=== PATIENT | female | born 1950 | race Caucasian/White ===

== ENCOUNTER 2020-04-20 01:15 | Outpatient (CLI) | payer MEDICARE, OTHER, SELFPAY ==
[2020-04-20 19:19] LABS: SARS-CoV-2 RNA PCR Negative
== END 2020-04-20 01:16 | disposition home or self-care (01) ==
LOC: ANHCOVIDDT 01:15
PROVIDERS: PCP Internal Medicine; Visit Provider Internal Medicine Gastroenterology
DX: Z01.812 Encounter for preprocedural laboratory examination (principal); Z11.59 Encounter for screening for other viral diseases
CPT/HCPCS: 87635; C9803; U0003

== ENCOUNTER 2020-04-22 01:29 | Day surgery (SDC) | payer MEDICARE, OTHER, SELFPAY ==
[2020-04-12 13:33] VITALS: BMI 31.4
--- NOTE | 2020-04-22 07:51 | WPDANESEPPF ---
Anes - Initial Pre Proc Eval Procedure: Operation Date: 04/22/20 09:30 Proposed Procedures p Screening Colonoscopy - Henry Jay MD Date/Time: 04/22/20 07:51 Surgeon: Henry Jay MD Pre Op Diagnosis: family hx colon CA Patient Data Age: 69 Gender: F Height: 1.63 m Weight: 83 kg Allergies Allergy/AdvReac Type Severity Reaction Status Date / Time No Known Allergies Allergy Mild Verified 04/22/20 08:44 Home Medications Medication Instructions Recorded Confirmed Type atorvastatin 40 mg PO DAILY 09/10/19 04/12/20 History calcitonin (salmon) 1 spray INTRANASAL DAILY 09/10/19 04/12/20 History insulin lispro [Humalog U-100 See Rx Instructions .ROUTE .COMPLEX 09/10/19 04/12/20 History Insulin] irbesartan 150 mg PO DAILY 09/10/19 04/12/20 History levothyroxine 137 mcg PO DAILY 09/10/19 04/22/20 History pantoprazole 40 mg PO DAILY 09/10/19 04/12/20 History estradiol [Imvexxy Maintenance 10 mcg VAGINAL 2XW 04/12/20 04/12/20 History Pack] Patient hx anesthesia problems: none Family hx anesthesia problems: none PMFSH Past Medical History Medical History Anxiety Arthritis Depression Diabetes Gastroesophageal reflux disease HTN (hypertension) Hypercholesterolemia Hypothyroidism Obesity Family History Family History (Updated 05/20/14 @ 07:13 by DOCTOR UNKNOWN) Mother Family history of dementia Social History Social History Smoking status: Never smoker Alcohol intake: current Anes - Eval Final PreProcedure Day of Procedure 04/22/20 07:51 Patient weight: obese Heart: regular rate and rhythm Lungs: clear to auscultation and normal air movement Airway: Mallampati scale class II Neurological: alert and oriented Last oral intake: >/= 8 hours ASA classification: III Emergent: no Anesthetic plan: proceed Anesthesia type and monitoring: general GIVS Informed Consent: The patient's anesthetic plan and its attendant risks and benefits were discussed with the patient/family/POA. Questions were solicited and answers provided to the satisfaction of the patient/family/POA.
[2020-04-22 08:46] VITALS: BP 137/65; PULSE 79; RESP 20; TEMP 36.7; O2SAT 98
--- NOTE | 2020-04-22 08:47 | P.HP_ITS ---
History of Present Illness History of Present Illness Consent: Risks, benefits, and alternatives have been discussed and questions answered. Patient agrees to proceed with procedure. Chief complaint: family hx colon CA Narrative: Vandana Dickey is a 69 year old female with a history of polyps and a strong family history of colon cancer. [facility] Past Medical History Medical History Anxiety Arthritis Depression Diabetes Gastroesophageal reflux disease HTN (hypertension) Hypercholesterolemia Hypothyroidism Obesity Family History Family History (Updated 05/20/14 @ 07:13 by DOCTOR UNKNOWN) Mother Family history of dementia Social History Social History Smoking status: Never smoker Alcohol intake: current Meds Home Medications and Allergies Home Medications Medication Instructions Recorded Confirmed Type atorvastatin 40 mg PO DAILY 09/10/19 04/12/20 History calcitonin (salmon) 1 spray INTRANASAL DAILY 09/10/19 04/12/20 History insulin lispro [Humalog U-100 See Rx Instructions .ROUTE .COMPLEX 09/10/19 04/12/20 History Insulin] irbesartan 150 mg PO DAILY 09/10/19 04/12/20 History levothyroxine 137 mcg PO DAILY 09/10/19 04/22/20 History pantoprazole 40 mg PO DAILY 09/10/19 04/12/20 History estradiol [Imvexxy Maintenance 10 mcg VAGINAL 2XW 04/12/20 04/12/20 History Pack] Allergies Allergy/AdvReac Type Severity Reaction Status Date / Time No Known Allergies Allergy Mild Verified 04/22/20 08:44 Exam Resp: Auscultation: clear to auscultation bilaterally Cardio: Rate: regular rate Rhythm: regular rhythm GI: GI Palp: Yes Soft to palpation and No Tenderness to palpation present (GI) Assessment and Plan Assessment and plan (1) Personal history of colonic polyps: Code(s): Z86.010 - Personal history of colonic polyps Status: Acute Assessment and Plan: Colonoscopy with possible biopsy or polypectomy or cautery or injection of substances.
--- NOTE | 2020-04-22 08:49 | SUR.PREOP ---
NOTIFIED DR FREY PT HAS CONTINUOUS GLUCOSE MONITOR, READING 143, PT HAS INSULIN PUMP. NO ORDER RECEIVED TO CHECK PT WITH ACCU CHECK MONITOR. PT ASSYMPTOMATIC.
[2020-04-22] MEDS: LACTATED RINGERS 1,000 ML 150 ML IV CONT (08:55)
[2020-04-22 09:41] VITALS: BP 112/69; PULSE 91; RESP 16; O2SAT 93
[2020-04-22 09:51] VITALS: BP 135/72; PULSE 91; RESP 18; O2SAT 96
[2020-04-22 10:01] VITALS: BP 117/56; PULSE 88; RESP 16; O2SAT 98
--- NOTE | 2020-04-22 10:04 | SUR.PHASEII ---
PT BLOOD SUGAR PER HER CONTINUOUS BLOOD SUGAR [id number].
== END 2020-04-22 10:24 | disposition home or self-care (01) ==
PROVIDERS: PCP Internal Medicine; Visit Provider Internal Medicine Gastroenterology
PROC: 0DJD8ZZ Inspection of Lower Intestinal Tract, Via Natural or Artificial Opening Endoscopic (ICD-10-PCS; CPT 45378; principal; 2020-04-22 09:30)
DX: Z12.11 Encounter for screening for malignant neoplasm of colon (principal); Z86.010 Personal history of colon polyps; Z80.0 Family history of malignant neoplasm of digestive organs; I10 Essential (primary) hypertension; E78.00 Pure hypercholesterolemia, unspecified; E11.9 Type 2 diabetes mellitus without complications; E03.9 Hypothyroidism, unspecified; K21.9 Gastro-esophageal reflux disease without esophagitis; F41.8 Other specified anxiety disorders; E66.9 Obesity, unspecified; Z68.31 Body mass index [BMI] 31.0-31.9, adult; Z79.4 Long term (current) use of insulin
CPT/HCPCS: G0105; J2704; J7120

== ENCOUNTER 2021-04-14 14:35 | Outpatient (CLI) | payer MEDICARE, OTHER, SELFPAY ==
--- NOTE | ~2021-04-14 | MM_ITS ---
EXAMINATION: MM screening blair BI w jessa HISTORY: Screening TECHNIQUE: Craniocaudal and mediolateral oblique 3-D tomosynthesis images were obtained and synthetic 2-D images were generated. CAD analysis was submitted and interpreted. COMPARISON: Comparison to multiple prior studies sequentially, with oldest reviewed study dated 01/11. BREAST PARENCHYMAL COMPOSITION: There are scattered areas of fibroglandular density. FINDINGS: There is no evidence of suspicious mass, calcification, or architectural distortion to sugg est malignancy in either breast. There has been no suspicious interval change. IMPRESSION: 1. No mammographic evidence of malignancy. 2. Recommend routine screening mammography in one year. BI-RADS Category 1: Negative Reviewed, dictated and finalized at location A.
== END 2021-04-14 14:36 | disposition home or self-care (01) ==
LOC: ANHIMG 14:43
PROVIDERS: PCP Internal Medicine
DX: Z12.31 Encounter for screening mammogram for malignant neoplasm of breast (principal)
CPT/HCPCS: 77063; 77067

== ENCOUNTER 2022-12-30 00:34 | Emergency (ER) | payer MEDICARE, SELFPAY ==
[2022-12-30] VITALS (13 sets, daily range): BP systolic 142–164; BP diastolic 64–79; PULSE 89–102; RESP 11–18; TEMP 37.2; O2SAT 90–100
--- NOTE | 2022-12-30 01:23 | ED.GENADULT ---
HPI - General Adult General Chief complaint: Nausea/Vomiting/Diarrhea Stated complaint: n/v Time Seen by Provider: 12/30/22 00:52 History of Present Illness HPI narrative: This is a 72-year-old female history of diabetes presenting ED with chief complaint of nausea and vomiting. Patient has been feeling unwell for most of the day. This has primarily been fatigued over she has been taking multiple naps. She had an episode of hypoglycemia around noon that required multiple sugar pills to correct. At 5:00 p.m. she woke up and was nauseous and multiple episodes of nausea and vomiting. There is some abdominal discomfort that occurred after the vomiting. She denies fever, chills, cough, chest pain difficulty breathing or urinary symptoms. Patient spent yesterday in the hospital with their daughter who has colorectal cancer. Related Data Home Medications Medication Instructions Recorded Confirmed atorvastatin 40 mg tablet 40 mg PO DAILY 09/10/19 12/30/22 insulin lispro 100 unit/mL See Rx Instructions .Route .COMPLEX 09/10/19 12/30/22 subcutaneous solution (Humalog U-100 Insulin) levothyroxine 137 mcg tablet 137 mcg PO DAILY 09/10/19 12/30/22 pantoprazole 40 mg tablet,delayed 40 mg PO DAILY 09/10/19 12/30/22 release irbesartan 300 mg tablet 300 mg PO DAILY 09/05/21 12/30/22 Allergies Allergy/AdvReac Type Severity Reaction Status Date / Time No Known Allergies Allergy Mild Verified 12/30/22 00:35 [facility] Past Medical History Medical History Anxiety Arthritis Depression Diabetes Gastroesophageal reflux disease HTN (hypertension) Hypercholesterolemia Hypothyroidism Obesity Family History Family History Mother Family history of dementia Social History Social History Smoking status: Never smoker Alcohol intake: current Lack of Transportation: No Lack of Food: Never True Current Housing: I Have Housing Concerned About Future Housing: No Difficulty Paying Gas/Electric Bills: No Difficulty Paying for Meds: No Currently Unemployed: No Education: Associate Degree Difficulty w/ Childcare or Family Care: No Exam Narrative: APPEARANCE: No apparent distress. Patient is well-appearing Head: atraumatic. EYES: EOMI, NOSE: Atraumatic NECK: Trachea midline RESPIRATORY: No increased rate of breathing, clear to auscultation CARDIOVASCULAR: RRR, no peripheral edema ABDOMINAL: Non-distended, soft nontender no guarding rebound MUSCULOSKELETAl: No obvious deformities NEURO: Alert. Moving 4/4 extremities SKIN:: Warm, dry. Normal color PSYCHIATRIC: Normal affect Course Vital Signs Vital signs: Vital Signs Temperature 99 F 12/30/22 00:42 Pulse Rate 100 12/30/22 00:42 Respiratory Rate 18 12/30/22 00:42 Blood Pressure 164/67 H 12/30/22 00:42 Pulse Oximetry 96 12/30/22 00:42 Temperature 99 F 12/30/22 00:42 Pulse Rate 90 12/30/22 02:16 Respiratory Rate 11 L 12/30/22 02:16 Blood Pressure 142/66 H 12/30/22 02:16 Pulse Oximetry 90 12/30/22 02:16 Medical Decision Making [facility] Narrative Medical decision making narrative: -Presentation: 72-year-old female presenting with nausea and vomiting x1 day. -DDX includes but is not limited to: Viral syndrome, gastroenteritis, DKA/HHS -Co-morbidities complicating care: Type 1 diabetes, anxiety, hypothyroid, hypertension -Social determinants of health: Patient is a retired hospital secretary. She lives with Bladimir who is her . -External Chart Review: None -Hx from independent Sources: Bladimir at bedside -Discussion of Management/Consultants: None -Independent interpretation of studies: CBC within normal limits. Metabolic panel showed hyponatremia and hypochloremia indication of dehydration. Patient given 2 L. Urinalysis was not indicative o
[2022-12-30 01:53] LABS: Basophils Percent Auto 0.1 % (0.2-1.2); Hematocrit 35.6 % (37.0-47.0); Immature Granulocyte Absolute 0.01 K/mm3 (0.00-0.031); Immature Granulocyte Percent A 0.1 % (0-0.5); Lymphocytes Absolute Auto 0.33 K/mm3 (0.9-3.2); Lymphocytes Percent Auto 4.4 % (18.3-44.2); Mean Corpuscular HGB Conc 33.7 g/dl (32-36); Mean Corpuscular Hemoglobin 27.9 pg (26-34); Mean Corpuscular Volume 82.8 fl (80-100); Mean Platelet Volume 9.3 fl (7.4-10.4); Monocytes Absolute Auto 0.3 K/mm3 (0.1-0.6); Monocytes Percent Auto 3.3 % (2.6-8.5); Neutrophils Percent Auto 92.1 % (45.5-73.1); Platelet Count Result 316 k/mm3 (150-375); White Blood Count 7.6 K/mm3 (4.5-10.0)
[2022-12-30 01:57] LABS: Appearance Urine Cloudy (Clear); Bacteria Urine 1+ /hpf; Bilirubin Urine Negative (Negative); Blood Urine Negative (Negative); Color Urine Yellow (Yellow); Glucose Urine UA Trace mg/dL (Negative); Ketones Urine 1+ mg/dL (Negative); Leukocyte Esterase Ur Negative LEU/UL (Negative); Nitrate Urine Negative (Negative); Non Pathogenic Casts 0-2; Protein Urine Trace mg/dL (Negative); Specific Grav Ur 1.025 (1.001-1.035); Squamous Epithelial Cell Urine Few /hpf (Few); Urobilinogen Urine 0.2 mg/dL (<2.0); WBC Urine 0-5 /hpf; pH Urine 5.5 (5.0-9.0)
[2022-12-30] MEDS: FAMOTIDINE 20 MG/2 ML VIAL IV PUSH (02:05)
[2022-12-30] MEDS: ONDANSETRON INJ 4 MG/2 ML VIAL IV PUSH (02:05)
[2022-12-30] MEDS: SODIUM CHLORIDE 0.9% IV 2,000 ML 999 ML IV CONT (02:06)
[2022-12-30 02:10] LABS: Alanine Aminotransferase 34 U/L (6-35); Albumin Level 4.8 g/dL (3.5-5.1); Alkaline Phosphatase 94 U/L (38-126); Anion Gap 7 mmol/L (8-16); Aspartate Amino Transferase 41 U/L (14-36); Bilirubin,Total 0.6 mg/dL (0.2-1.3); Blood Urea Nitrogen 18 mg/dL (7-17); Calcium 8.7 mg/dL (8.4-10.2); Carbon Dioxide 26 mmol/L (22-30); Chloride 95 mmol/L (98-107); Estimated CRCL calculation 93 ml/min; Estimated Glomerular Filt Rate > 60; Glucose 209 mg/dL (65-110); Lipase 11 U/L (23-300); Potassium 4.4 mmol/L (3.4-5.0); Sodium 128 mmol/L (137-145)
[2022-12-30 02:13] LABS: Add Urine Microscopic? YES
[2022-12-30] MEDS: PROCHLORPERAZINE EDISYLATE 10 MG/2 ML VIAL IV PUSH (02:26)
[2022-12-30 02:30] LABS: Influenza A QL RT-PCR Negative (Negative); Influenza B QL RT-PCR Negative (Negative); RSV RNA, RT-PCR Negative (Negative); SARS-CoV-2 RNA PCR Negative
--- NOTE | 2022-12-30 03:28 | PC.NURSE ---
Pt tolerated drinking water w/ no nausea or vomiting. Physician notified.
== END 2022-12-30 03:55 | disposition home or self-care (01) ==
PROVIDERS: Emergency Provider Emergency Medicine
DX: R11.2 Nausea with vomiting, unspecified (principal); E11.9 Type 2 diabetes mellitus without complications; I10 Essential (primary) hypertension; E78.00 Pure hypercholesterolemia, unspecified; E03.9 Hypothyroidism, unspecified; K21.9 Gastro-esophageal reflux disease without esophagitis; F41.9 Anxiety disorder, unspecified; F32.A Depression, unspecified; E66.9 Obesity, unspecified; Z68.32 Body mass index [BMI] 32.0-32.9, adult; Z79.4 Long term (current) use of insulin; Z20.822 Contact with and (suspected) exposure to COVID-19
CPT/HCPCS: 36415; 80053; 81001; 83690; 83735; 85025; 87637; 96374; 96375; 99284; J0780; J2405; J7030

== ENCOUNTER 2025-04-06 00:21 | Day surgery (SDC) | payer MEDICARE, SELFPAY ==
[2025-03-22 14:07] VITALS: BMI 32.0
--- NOTE | 2025-03-22 14:22 | PC.NURSE ---
Pt states she will need ultrasound for her IV. Lidia Luong has been notified.
--- OUTSIDE RECORDS SUMMARY | 2025-04-06 00:23 | XMS_ITS | Clinical Summary ---
Author Organization [place] [id number] [facility] Address [address] [place] [address] Care Team Providers Care General Labor Name Role Phone Jesús Rolle MD Primary Care Provider Allergies No known active allergies Medications lancets (Accu-Chek Fastclix Lancet Drum) misc Use to check blood sugar 4 times per day. 400 each 3 2 Active Imvexxy Maintenance Pack 10 mcg insert vaginal insert INSERT 1APPLICATORFUL IN THE VAGINA TWICE A WEEK 4 Active HumaLOG 100 unit/mL vial for injectionIndicati ons:Type 1 diabetes mellitus without complication (HCC) For use in insulin pump. 75 Units daily. E10.65. 80 mL 2 4 08/10/20 25 Active ALPRAZolam (XANAX) 0.25 mg tablet Take 1 tablet (0.25 mg total) by mouth daily as needed for anxiety 30 tablet [address] (PROTONIX) 40 mg EC tablet TAKE 1 TABLET(40 MG) BY MOUTH DAILY 90 tablet 3 5 Active levothyroxine (SYNTHROID) 137 mcg tablet TAKE 1 TABLET BY MOUTH EVERY MORNING BEFORE BREAKFAST 90 tablet 3 5 Active Accu-Chek Guide test strips strip USE TO TEST BLOOD SUGAR FOUR TIMES DAILY 400 strip 2 5 Active propranolol LA (INDERAL LA) 60 mg 24 hr capsule Take 1 capsule (60 mg total) by mouth daily 90 capsule 2 5 Active semaglutide (WEGOVY) 1 mg/0.5 mL auto-injector Inject 1 mg under the skin every 7 days Active irbesartan (AVAPRO) 300 mg tablet Take 1 tablet (300 mg total) by mouth daily 90 tablet 3 5 Active rosuvastatin (CRESTOR) 40 mg tablet TAKE 1 TABLET BY MOUTH EVERY DAY 90 tablet 2 5 Active Active Problems Patient Care Coordination No te Formatting of this note migh t be different from the original. Ear cleaning Problem Noted Date Diagnosed Date Obesity (BMI 30-39.9) 09/21/2024 Assessment & Plan (09/21/2024 10:43 AM SHOP ESTIMATOR): Will start Wegovy 0.25 mg weekly. Can increase dose ever 4 weeks as tolerated. We discussed possible side effects including hypoglycemia and GI side effects. Closed nondisplaced fracture of second metatarsal bone of right foot 06/19/2022 Assessment & Plan (06/19/2022 11:56 AM CDT): Check XR for healing and likely remove boot. Osteopenia 06/19/2022 Assessment & Plan (06/19/2022 11:57 AM CDT): Bone density at spine, L femoral neck, L total hip c/w osteopenia. Recommended calcium supplement, vitamin D supplement, and weight-bearing exercise. Mixed hyperlipidemia 03/13/2022 Assessment & Plan (09/21/2024 10:39 AM SHOP ESTIMATOR): At goal on current therapy. Assessment & Plan (03/20/2024 11:25 AM CDT): At goal on current therapy. Assessment & Plan (12/17/2023 10:59 AM CDT): At goal on current therapy. Assessment & Plan (09/18/2023 11:10 AM SHOP ESTIMATOR): Last LDL was mildly elevated last time. Repeat lipids today. Assessment & Plan (03/19/2023 10:54 AM CDT): At goal on current therapy. Assessment & Plan (09/18/2022 1:09 PM SHOP ESTIMATOR): Switch atorvastatin to rosuvastatin 20 mg daily to see if this improves her muscle cramps. Assessment & Plan (06/19/2022 11:55 AM CDT): At goal on current therapy. Assessment & Plan (03/13/2022 12:08 PM CDT): At goal on current therapy. Hypertension, essential 06/07/2021 Assessment & Plan (09/21/2024 10:38 AM SHOP ESTIMATOR): At goal on current therapy. Assessment & Plan (03/20/2024 11:25 AM CDT): At goal on current therapy. Assessment & Plan (12/17/2023 10:59 AM CDT): At goal on current therapy. Assessment & Plan (09/18/2023 1:02 PM SHOP ESTIMATOR): At goal on current therapy. Assessment & Plan (06/18/2023 10:41 AM CDT): At goal on current therapy. Assessment & Plan (03/19/2023 12:50 PM CDT): BP not at goal. May be contributing to intermittent episodes of dizziness and palpitations. Add propranolol 60 mg daily. If this does not help, we will proceed with a stress test and head imaging to rule out alternative etiologies. Assessment & Plan (12/19/2022 3:39 PM CDT): Mildly elevated at home in the context of increased stress. Will continue to monitor. Assessment & Plan (09/18/2022 1:09 PM SHOP ESTIMATOR): At goal on current therapy. Assessment & Plan (06/19/2022 11:55 AM CDT): BP elevated today. Check BP's at home using automated cuff and keep log to bring to next visit. Goal < 130/80. Assessment & Plan (03/13/2022 12:08 PM CDT): BP at goal based on home measurements. Assessment & Plan (12/13/2021 8:21 PM CDT): At goal on current therapy. Assessment & Plan (09/14/2021 3:56 PM SHOP ESTIMATOR): At goal on current therapy. Assessment & Plan (06/07/2021 10:53 AM CDT): At goal on current therapy. Type 1 diabetes mellitus without complication Assessment & Plan (09/21/2024 10:39 AM SHOP ESTIMATOR): A1c at goal on current therapy. Eye exams are current. Assessment & Plan (06/22/2024 11:33 AM CDT): A1C 6.7% Continue CSII/CGM Labs next visit Is on ARB and statin Eye exam UTD Assessment & Plan (03/20/2024 11:25 AM CDT): A1c at goal on current therapy. Assessment & Plan (12/17/2023 10:59 AM CDT): A1c at goal on current therapy. Assessment & Plan (09/18/2023 11:10 AM SHOP ESTIMATOR): A1c at goal on current therapy. Assessment & Plan (06/18/2023 10:41 AM CDT): A1c at goal on current therapy. Assessment & Plan (03/19/2023 12:50 PM CDT): POC A1c seems spuriously high. Continue current pump settings. Will meet with CDE today. Change to auto mode not necessary as her glucose control is already superb. Assessment & Plan (01/07/2023 11:17 AM CDT): A1C 6.5% today On CSII/CGM Assessment & Plan (12/19/2022 3:32 PM CDT): A1c at goal on current therapy. Assessment & Plan (09/18/2022 1:10 PM SHOP ESTIMATOR): A1c above goal, but glucoses in last 2 weeks are better and predicted A1c is 6.7%. Continue same pump settings. Assessment & Plan (06/19/2022 11:56 AM CDT): A1c at goal on current therapy. Labs UTD. Recommend yearly eye exams. Assessment & Plan (03/13/2022 12:08 PM CDT): A1c at goal on current therapy. Labs UTD. Recommend yearly eye exams. Assessment & Plan (12/13/2021 8:21 PM CDT): A1c at goal on current therapy. Labs UTD. Recommend yearly eye exams. Assessment & Plan (09/14/2021 3:56 PM SHOP ESTIMATOR): A1c at goal on current therapy. Labs due. Recommend yearly eye exams. Assessment & Plan (06/07/2021 10:52 AM CDT): Exceptional control. No changes to pump settings at this time. Continue yearly eye exams. Check labs next visit. Assessment & Plan (12/13/2020 4:47 PM CDT): Continue CSII and CGM Last A1C 6.2% in Aug 2020, will go to local lab ([facility]) to obtain current A1C Labs Aug 2020 WNL. Hypercholesterolemia 02/03/2018 Assessment & Plan (06/18/2023 11:22 AM CDT): Switched from atorvastatin to rosuvastatin. Recheck LDL. Assessment & Plan (12/13/2021 8:21 PM CDT): LDL higher. Redouble efforts at diet and exercise. Keep same statin dose. Assessment & Plan (09/14/2021 3:55 PM SHOP ESTIMATOR): At goal on current therapy. Assessment & Plan (06/07/2021 10:53 AM CDT): LDL up from last time, but she was off a statin recently. Resume Lipitor 40 mg daily and check lipids at next visit. Diabetic peripheral neuropathy 12/06/2016 Hypothyroidism 12/06/2016 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 kn ee 03/19/2016 Resolved Problems Problem Noted Date Diagnosed Date Resolved Date Epistaxis 09/18/2023 06/22/2024 Assessment & Plan (09/18/2023 1:02 PM SHOP ESTIMATOR): Send to ENT. Recommended compression and Afrin for acute treatment of nosebleeds. Palpitations 01/07/2023 06/22/2024 Assessment & Plan (06/18/2023 10:41 AM CDT): Doing much better on propranolol. Assessment & Plan (01/07/2023 11:19 AM CDT): 12/30/22 in ED Na 128, BUN 18 Cr 0.5 08/2022 TFT's WNL Will recheck labs today 30 day event monitor Medicare annual wellness visit, subsequent 03/13/2022 01/07/2023 Assessment & Plan (03/13/2022 12:08 PM CDT): Try to exercise 30 mins per day, 5 days per week. Cancer screening is UTD. Recommended Shingrix vaccine. Sinusitis 12/13/2021 01/07/2023 Assessment & Plan (12/13/2021 8:22 PM CDT): Z pack. Encounters Date Type Department Care Team Description 03/24/2025 Results Follow-Up [facility] [address] [facility] [address] [place] [phone] Anitha Charlton NP Comprehensive metabolic panel, Thyroid Function [place], Specimen Status Report, Additional followed-up results: 4 03/23/2025 10:45 AM CDT Office Visit [facility] [address] [facility] [address] [phone] Anitha Charlton NP Type 1 diabetes mellitus without complication (HCC) (Primary Dx); Hypertension, essential; Mixed hyperlipidemia; Hypothyroidism, unspecified type from Last 3 Months Immunizations Immunization Administration Dates Next Due Influenza, Quad, Adjuvantate d, Intramuscular 05/11/2020 Pfizer SARS-CoV-2 Monovalent Vaccination (12+ Yrs) PURPLE 06/12/2021,11/22/2020,11/01/2020 Pneumococcal Conjugate PCV 13 07/22/2019 Surgical History Surgery Date Site/Laterality Comments APPENDECTOMY 1979 KNEE ARTHROSCOPY W/ LATERAL RELEASE 1987 and 1994 CATARACT EXTRACTION 2014 SECTION 1977 and 1979 CHOLECYSTECTOMY 10/13/04 HYSTERECTOMY TUBAL LIGATION 1979 Medical History Medical History Date Comments GERD (gastroesophageal reflux disease) 05/25/16 Anxiety Arthritis Osteoporosis 04/26/22 Cataract 2015 Diabetes mellitus (HCC) 01/03/68 Hypertension Thyroid disease Family History Medical History Relation Name Comments Cancer Daughter Elida Dickey Diabetes Daughter Elida Dickey Arthritis Father Javi Gramajo Obesity Father Javi Gramajo Depression Mother Tia Brown Hearing loss Mother Tia Brown Hypertension Mother Tia Brown Memory loss Mother Tia Brown Arthritis Sister Nina Antoine Diabetes Sister Nina Antoine Obesity Sister Nina Antoine Relation Name Status Comments Daughter Elida Caldwell Good Mother Tia Brown Sister Nina Antoine Social History Tobacco Use Types Packs/Day Years Used Date Smoking Tobacco: Never Smokeless Tobacco: Never Tobacco Cessation:Counseling Given: Not Answered PHQ-2 Answer Date Recorded PHQ-2 Total Score (If total score is 3 or more points, staff should administer the PHQ-9) 0 03/13/2022 Comments Unknown Sex and Gender Information Value Date Recorded Sex Assigned at Not on file Legal Sex Female 8:36 PM SHOP ESTIMATOR Gender Identity Female 09/12/2020 9:06 AM SHOP ESTIMATOR Sexual Orientation Straight 09/12/2020 9: 06 AM SHOP ESTIMATOR Obstetrics History Last Filed Vital Signs Vital Sign Reading Time Taken Comments Blood Pressure 122/78 03/23/2025 10:24 AM CDT Pulse 72 03/23/2025 10:24 AM CDT Temperature - - Respiratory Rate - - Oxygen Saturation 99% 03/23/2025 10:24 AM CDT Inhaled Oxygen Concentration - - Weight 82.6 kg (182 lb) 03/23/2025 10:24 AM CDT Height 160 cm (5' 3) 03/23/2025 10:24 AM CDT Body Mass Index 32.24 03/23/2025 10:24 AM CDT Plan of Treatment Health Maintenance Due Date Last Done Comments Breast Cancer Screening-Mammogram 1952 Colon Cancer Screening-Colonoscopy 1952 Hepatitis C Screening 1952 Osteoporosis Screening-Bone Density Scan 1952 Dilated Eye Exam 1962 DTaP/Tdap/Td Vaccine (1 - Tdap) 1963 Hepatitis B Screening 1970 Zoster Vaccine (1 of 2) 2002 Pneumococcal vaccine 65+ (2 of 2 - PPSV23) 09/16/2019 07/22/2019 Depression Screening 03/13/2023 03/13/2022, 09/13/20 20 Fall Risk Assessment 03/13/2023 03/13/2022, 09/13/20 20 Well Visit 65+ 03/13/2023 03/13/2022, 09/13/2020 Covid-19 Vaccine (4 - 2023-2 5 season) 2024 06/12/2021, 11/22/2020, 11/01/2020 Influenza Vaccine (#1) 2025 , 05/11/2020, 10/14/2017 Albumin Creatinine Ratio, Urine 09/09/2025 09/09/2024, 09/18/2023, 09/18/2022, Additional history exists Hemoglobin A1C 09/23/2025 03/23/2025, 04/0 10/2024, 09/21/2024, Additional history exists Foot Exam 03/23/2026 03/23/2025 Lipid Panel 03/23/2026 03/23/2025, 07/0 09/2024, 09/21/2024, Additional history exists TSH Level 03/23/2026 03/23/2025, 08/23, 09/18/2023, Additional history exists eGFR 03/23/2026 03/23/2025, 04/0 10/2024, 09/09/2024, Additional history exists Procedures Procedure Name Priority Date/Time Associated Diagnosis Comments CORTISOL Routine 04/02/2025 9:32 AM CDT Low sodium levels CARDIOVASCULAR RISK ASSESMENT Routine 03/23/2025 11:24 AM CDT LIPID PANEL Routine 03/23/2025 11:24 AM CDT SPECIMEN STATUS REPORT Routine 11:24 AM CDT CARDIOVASCULAR RISK ASSESMENT Routine 03/23/2025 11:24 AM CDT THYROID FUNCTION CASCADE Routine 03/23/2025 11:24 AM CDT Hypothyroidism, unspecified type COMPREHENSIVE METABOLIC PANEL Routine 03/23/2025 11:24 AM CDT Type 1 diabetes mellitus without complication (HCC) LIPID PANEL Routine 03/23/2025 11:24 AM CDT Mixed hyperlipidemia POCT HEMOGLOBIN A1C Routine 03/23/2025 1 1:06 AM CDT Type 1 diabetes mellitus without complication (HCC) ALBUMIN CREATININE RATIO, URINE Routine 09/09/2024 8:40 AM SHOP ESTIMATOR Type 1 diabetes mellitus without complication (HCC) from Last 3 Months or Most Recently Relevant to Health Maintenance Results * Cortisol (04/02/2025 9:32 AM CDT) Cortisol 14.4 6.2 - 19.4 ug/dL [facility] - 01 Comment: Please Note: The reference interval and flagging for this test is for an AM collection. If this is a PM collection please use: Cortisol PM: 2.3-11.9 Blood 04/02/2025 9:32 AM CDT 04/02/2025 Narrative [facility] - 04/03/2025 3:35 AM CDT Performed at: [address] [place] [id number] Boring Machine Feeder: Gaston Dunbar PhD, Phone: [phone] us Anitha Charlton MECHANIC SOUND TECHNICIAN LAB BLOOD ORDERABLES Final Re sult Performing Organization Address [facility] de Phone Number [facility] - * Specimen Status Report (03/23/2025 11:24 AM CDT) Specimen Status Report Comment [facility] - 01 Comment: Written Authorization Written Authorization Written Authorization Received. Authorization received from PER ORDER [id number] 03-24-2025 Logged by Kiara Saucedo 03/23/2025 11:2 4 AM CDT 03/23/2025 Narrative [facility] - 03/24/2025 4:11 PM CDT Performed at: [address] [id number] Boring Machine Feeder: Gaston Dunbar PhD, Phone: [phone] us Anitha Charlton MECHANIC SOUND TECHNICIAN LAB BLOOD ORDERABLES Final Re sult Performing Organization Address [facility] de Phone Number [facility] - * Thyroid Function [place] (03/23/2025 11:24 AM CDT) TSH 0.668 0.450 - 4.500 uIU/mL [facility] - 01 Comment: No apparent thyroid disorder. Additional testing not indicated. In rare instances, Secondary Hypothyroidism as well as Subclinical Hypothyroidism have been reported in some patients with normal TSH values. Blood 03/23/2025 11:2 4 AM CDT 03/23/2025 Narrative [facility] - 03/24/2025 9:36 AM CDT Performed at: [address] [place] [id number] Boring Machine Feeder: Gaston Dunbar PhD, Phone: [phone] us Anitha Charlton MECHANIC SOUND TECHNICIAN LAB BLOOD ORDERABLES Final Re sult Performing Organization Address [facility]/ZIP Co de Phone Number [facility] - 01 * Cardiovascular risk assesment (03/23/2025 11:24 AM CDT) [facility] Note [facility] - Comment: Grain Operations Manager's Note: This report takes into account only those test results that were added on to the original order, not those from the original order. Supplemental report is available. 03/23/2025 11:2 4 AM CDT 03/23/2025 Narrative [facility] - 03/25/2025 3:35 AM CDT Performed at: [facility] [address] [place], [place] [id number] Boring Machine Feeder: Sheeba Zhang MD, Phone: [phone] us Anitha Charlton MECHANIC SOUND TECHNICIAN LAB BLOOD ORDERABLES Final Re sult Performing Organization Address [facility] de Phone Number [facility] - 01 * Cardiovascular risk assesment (03/23/2025 11:24 AM CDT) [facility] Not applicable [facility] - Comment: A [place] interpretive report has not been generated since ordered tests are not currently relevant to the program. 03/23/2025 11:2 4 AM CDT 03/23/2025 Narrative [facility] - 03/24/2025 4:36 PM CDT Performed at: [facility] [address] [place] [address] [address]o [place], [place] [id number] Boring Machine Feeder: Devin Mariee PhD, Phone: [phone] us Anitha Charlton MECHANIC SOUND TECHNICIAN LAB BLOOD ORDERABLES Final Re sult Performing Organization Address [facility]/ZIP Co de Phone Number [facility] - 01 * Lipid panel (03/23/2025 11:24 AM CDT) Cholesterol 142 100 - 199 mg/dL [facility] - 01 Triglycerides 100 0 - 149 mg/dL [facility] - 01 HDL Cholesterol 56 >39 mg/dL [facility] - 01 VLDL 18 5 - 40 mg/dL [facility] - 01 LDL, calculated 68 0 - 99 mg/dL [facility] - 01 03/23/2025 11:2 4 AM CDT 03/23/2025 Narrative [facility] - 03/25/2025 1:07 AM CDT Performed at: - [facility] [address] [id number] Boring Machine Feeder: Gaston Dunbar PhD, Phone: [phone] us Anitha Charlton MECHANIC SOUND TECHNICIAN LAB BLOOD ORDERABLES Final Re sult [facility] - 01 * Lipid panel (03/23/2025 11:24 AM CDT) Cholesterol CANCELED mg/dL [facility] - 01 Comment: Please refer to the following specimen for additional lab results. SEE [id number] FOR RESULTS Result canceled by the ancillary. Triglycerides CANCELED [facility] - 01 Comment: Test not performed Result canceled by the ancillary. HDL Cholesterol CANCELED [facility] - 01 Comment: Test not performed Result canceled by the ancillary. VLDL CANCELED mg/dL [facility] - 01 Comment: Unable to calculate result since non-numeric result obtained for component test. Result canceled by the ancillary. Blood 03/23/2025 11:2 4 AM CDT 03/23/2025 Narrative [facility] - 03/24/2025 3:10 PM CDT 749553^Cholesterol, Total^L^TNP Please refer to the following specimen for additional lab results. SEE [id number] FOR RESULTS 908434^Triglycerides^L^TNP Test not performed 424921^HDL Cholesterol^L^TNP Test not performed 125093^VLDL Cholesterol Joon^L^TNP Unable to calculate result since non-numeric result obtained for component test. Performed at: - [facility] [id number] Boring Machine Feeder: Gaston Dunbar PhD, Phone: [phone] us Anitha Charlton MECHANIC SOUND TECHNICIAN LAB BLOOD ORDERABLES Final Re sult [facility] - 01 * (ABNORMAL) Comprehensive metabolic panel (03/23/2025 11:24 AM CDT) [facility] Glucose 116(H) 70 - 99 mg/dL [facility] - 01 BUN 13 8 - 27 mg/dL [facility] - 01 Creatinine, Serum 0.93 0.57 - 1.00 mg/dL [facility] - 01 eGFR 65 >59 mL/min/1.7 3 [facility] - 01 BUN/creat ratio 14 12 - 28 [facility] - 01 Sodium 129(L) 134 - 144 mmol/L [facility] - 01 Potassium, sr 5.2 3.5 - 5.2 mmol/L [facility] - 01 Chloride 92(L) 96 - 106 mmol/L [facility] - 01 CO2 21 20 - 29 mmol/L [facility] - 01 Calcium 9.9 8.7 - 10.3 mg/dL [facility] - 01 Protein, sr 6.8 6.0 - 8.5 g/dL [facility] - 01 Albumin 4.6 3.8 - 4.8 g/dL [facility] - 01 Globulin, Total 2.2 1.5 - 4.5 g/dL [facility] - 01 Bilirubin, Total 0.2 0.0 - 1.2 mg/dL [facility] - 01 Alk phos 87 44 - 121 IU/L [facility] - 01 AST 12 0 - 40 IU/L [facility] - 01 ALT 12 0 - 32 IU/L [facility] - 01 Blood 03/23/2025 11:2 4 AM CDT 03/23/2025 Narrative [facility] - 03/24/2025 8:36 AM CDT Performed at: [address] [id number] Boring Machine Feeder: Gaston Dunbar PhD, Phone: [phone] us Anitha Charlton MECHANIC SOUND TECHNICIAN LAB BLOOD ORDERABLES Final Re sult [facility] - 01 * (ABNORMAL) POCT hemoglobin A1c (03/23/2025 11:06 AM CDT) Hemoglobin A1C, POC 6.7(A) 4.0 - 5.6 % Capillary blood 03/23/2025 1 1:06 AM CDT us Anitha Charlton MECHANIC SOUND TECHNICIAN POINT OF CARE TEST ORDERABLES Final Result * Albumin Creatinine Ratio, Urine (09/09/2024 8:40 AM SHOP ESTIMATOR) Creatinine ur 43.0 Not Estab. mg/dL [facility] - 01 Microalbumin, ur <3.0 Not Estab. ug/mL [facility] - 01 Comment:Verified by repeat analysis Microalbumin/cre at ratio <7 0 - 29 mg/g creat [facility] - 01 Comment: Normal: 0 - 29 Moderately increased: 30 - 300 Severely increased: >300 Urine 09/09/2024 8:40 AM SHOP ESTIMATOR 09/09/2024 Narrative [facility] - 09/10/2024 10:09 AM SHOP ESTIMATOR Performed at: - [place] [id number] Boring Machine Feeder: Gaston Dunbar PhD, Phone: [phone] us Beatriz Link MECHANIC SOUND TECHNICIAN LAB URINE ORDERABLES Fin al Result [facility] - 01 from Last 3 Months or Most Recently Relevant to Health Maintenance Insurance [address] [place] [address] MEDICARE ADVANTAGE MEDICARE [facility] Address: [address] [address] [place] [address] COMMERCIAL GENERIC MEDICARE [facility] [id number] [facility] MEDICARE ADVANTAGE Care Teams General Labor Relationship Specialty Start Date End Date Yozamp, Jesús David, MD PCP - General Endocrinology Diabetes & Metabolism 06/07/21
--- OUTSIDE RECORDS SUMMARY | 2025-04-06 00:24 | XMS_ITS | Referral Summary ---
Author Organization [place] [id number] [facility] Address [address] [place] [address] Care Team Providers Care Water Use Inspector Name Role Phone Jesús Rolle MD Primary Care Provider Encounters Date Type Department Care Team Description 03/24/2025 Results Follow-Up [facility] [address] [place] [address] [address] [phone] Anitha Charlton NP Comprehensive metabolic panel, Thyroid Function [place], Specimen Status Report, Additional followed-up results: 4 03/23/2025 10:45 AM CDT Office Visit [facility] [address] [place] [address] [phone] Anitha Charlton NP Type 1 diabetes mellitus without complication (HCC) (Primary Dx); Hypertension, essential; Mixed hyperlipidemia; Hypothyroidism, unspecified type from Last 3 Months Allergies No known active allergies Medications lancets [...] 09/21/2024 Assessment & Plan (09/21/2024 10:43 AM MANAGER ASSET MANAGEMENT): Will start Wegovy 0.25 mg weekly. Can [...] 03/13/2022 Assessment & Plan (09/21/2024 10:39 AM MANAGER ASSET MANAGEMENT): At goal on current therapy. Assessment & Plan (03/20/2024 11:25 AM CDT): At goal on current therapy. Assessment & Plan (12/17/2023 10:59 AM CDT): At goal on current therapy. Assessment & Plan (09/18/2023 11:10 AM MANAGER ASSET MANAGEMENT): Last LDL was mildly elevated last time. Repeat lipids today. Assessment & Plan (03/19/2023 10:54 AM CDT): At goal on current therapy. Assessment & Plan (09/18/2022 1:09 PM MANAGER ASSET MANAGEMENT): Switch atorvastatin to rosuvastatin 20 mg daily to see if this improves her muscle cramps. Assessment & Plan (06/19/2022 11:55 AM CDT): At goal on current therapy. Assessment & Plan (03/13/2022 12:08 PM CDT): At goal on current therapy. Hypertension, essential 06/07/2021 Assessment & Plan (09/21/2024 10:38 AM MANAGER ASSET MANAGEMENT): At goal on current therapy. Assessment & Plan (03/20/2024 11:25 AM CDT): At goal on current therapy. Assessment & Plan (12/17/2023 10:59 AM CDT): At goal on current therapy. Assessment & Plan (09/18/2023 1:02 PM MANAGER ASSET MANAGEMENT): At goal on current therapy. Assessment & [...] monitor. Assessment & Plan (09/18/2022 1:09 PM MANAGER ASSET MANAGEMENT): At goal on current therapy. Assessment & [...] therapy. Assessment & Plan (09/14/2021 3:56 PM MANAGER ASSET MANAGEMENT): At goal on current therapy. Assessment & Plan (06/07/2021 10:53 AM CDT): At goal on current therapy. Type 1 diabetes mellitus without complication Assessment & Plan (09/21/2024 10:39 AM MANAGER ASSET MANAGEMENT): A1c at goal on current therapy. Eye [...] therapy. Assessment & Plan (09/18/2023 11:10 AM MANAGER ASSET MANAGEMENT): A1c at goal on current therapy. Assessment [...] therapy. Assessment & Plan (09/18/2022 1:10 PM MANAGER ASSET MANAGEMENT): A1c above goal, but glucoses in last [...] exams. Assessment & Plan (09/14/2021 3:56 PM MANAGER ASSET MANAGEMENT): A1c at goal on current therapy. Labs [...] dose. Assessment & Plan (09/14/2021 3:55 PM MANAGER ASSET MANAGEMENT): At goal on current therapy. Assessment & [...] 06/22/2024 Assessment & Plan (09/18/2023 1:02 PM MANAGER ASSET MANAGEMENT): Send to ENT. Recommended compression and Afrin [...] Plan (12/13/2021 8:22 PM CDT): Z pack. Immunizations Immunization Administration Dates Next Due Influenza, Quad, Adjuvantate d, Intramuscular 05/11/2020 Pfizer SARS-CoV-2 Monovalent Vaccination (12+ Yrs) PURPLE 06/12/2021,11/22/2020,11/01/2020 Pneumococcal Conjugate PCV 13 07/22/2019 Social History Tobacco Use Types Packs/Day Years Used Date Smoking Tobacco: Never Smokeless Tobacco: Never Tobacco Cessation:Counseling Given: Not Answered PHQ-2 Answer Date Recorded PHQ-2 Total Score (If total score is 3 or more points, staff should administer the PHQ-9) 0 03/13/2022 Comments Unknown Sex and Gender Information Value Date Recorded Sex Assigned at Not on file Legal Sex Female 8:36 PM MANAGER ASSET MANAGEMENT Gender Identity Female 09/12/2020 9:06 AM MANAGER ASSET MANAGEMENT Sexual Orientation Straight 09/12/2020 9: 06 AM MANAGER ASSET MANAGEMENT Last Filed Vital Signs Vital Sign Reading [...] 03/23/2025 10:24 AM CDT Plan of Treatment Not on file Procedures Procedure Name Priority Date/Time Associated Diagnosis [...] CREATININE RATIO, URINE Routine 09/09/2024 8:40 AM MANAGER ASSET MANAGEMENT Type 1 diabetes mellitus without complication (HCC) from Last 3 Months or Most Recently Relevant to Health Maintenance Results * Cortisol (04/02/2025 9:32 AM CDT) Cortisol 14.4 6.2 - 19.4 ug/dL [facility] - 01 Comment: Please Note: The reference interval and flagging for this test is for an AM collection. If this is a PM collection please use: Cortisol PM: 2.3-11.9 Blood 04/02/2025 9:32 AM CDT 04/02/2025 Narrative [facility] - 04/03/2025 3:35 AM CDT Performed at: [address] [place] [id number] Speeder Operator: Gaston Dunbar PhD, Phone: [phone] us Anitha Charlton MANAGER OF DEVELOPMENT LAB BLOOD ORDERABLES Final Re sult [facility] - * Specimen Status Report (03/23/2025 11:24 AM CDT) Pathologist [facility] Specimen Status Report Comment [facility] - 01 Comment: Written Authorization Written Authorization Written Authorization Received. Authorization received from PER ORDER [id number] 03-24-2025 Logged by Kiara Saucedo 03/23/2025 11:2 4 AM CDT 03/23/2025 Narrative [facility] - 03/24/2025 4:11 PM CDT Performed at: [address] [place] [id number] Speeder Operator: Gaston Dunbar PhD, Phone: [phone] us Anitha Charlton MANAGER OF DEVELOPMENT LAB BLOOD ORDERABLES Final Re sult Performing Organization Address [facility] Phone Number [facility] - * Thyroid Function [place]ahan (03/23/2025 11:24 AM CDT) [facility] TSH 0.668 0.450 - 4.500 uIU/mL [facility] - Comment: No apparent thyroid disorder. Additional testing not indicated. In rare instances, Secondary Hypothyroidism as well as Subclinical Hypothyroidism have been reported in some patients with normal TSH values. Blood 03/23/2025 11:2 4 AM CDT 03/23/2025 Narrative [facility] - 03/24/2025 9:36 AM CDT Performed at: [address] [place] [id number] Speeder Operator: Gaston Dunbar PhD, Phone: [phone] us Anitha Charlton MANAGER OF DEVELOPMENT LAB BLOOD ORDERABLES Final Re sult Performing Organization Address [facility] Co de Phone Number [facility] - * Cardiovascular risk assesment (03/23/2025 11:24 AM CDT) Pathologist [facility] Emergency Department Cardiovascular, interp Note [facility] - 01 Comment: Russian History Professor's Note: This report takes into account only those test results that were added on to the original order, not those from the original order. Supplemental report is available. 03/23/2025 11:2 4 AM CDT 03/23/2025 Narrative [facility] - 03/25/2025 3:35 AM CDT Performed at: [facility] [address] [place], [place] [id number] Speeder Operator: Sheeba Zhang MD, Phone: [phone] us Anitha Charlton MANAGER OF DEVELOPMENT LAB BLOOD ORDERABLES Final Re sult Performing Organization Address [facility] Co de Phone Number [facility] - * Cardiovascular risk assesment (03/23/2025 11:24 AM CDT) Pathologist [facility] Emergency Department Cardiovascular, interp Not applicable [facility] - Comment: A Cordia interpretive report has not been generated since ordered tests are not currently relevant to the program. 03/23/2025 11:2 4 AM CDT 03/23/2025 Narrative [facility] - 03/24/2025 4:36 PM CDT Performed at: [facility] [address] [place] [address] [place] [id number] Speeder Operator: Devin Mariee PhD, Phone: [phone] us Anitha Charlton MANAGER OF DEVELOPMENT LAB BLOOD ORDERABLES Final Re sult Performing Organization Address [facility] Co de Phone Number [facility] - * Lipid panel (03/23/2025 11:24 AM CDT) Pathologist [facility] Cholesterol 142 100 - 199 mg/dL [facility] - 01 Triglycerides 100 0 - 149 mg/dL [facility] - 01 HDL Cholesterol 56 >39 mg/dL [facility] - 01 VLDL 18 5 - 40 mg/dL [facility] - 01 LDL, calculated 68 0 - 99 mg/dL [facility] - 01 03/23/2025 11:2 4 AM CDT 03/23/2025 Narrative [facility] - 03/25/2025 1:07 AM CDT Performed at: - [facility] [address] [id number] Speeder Operator: Gaston Dunbar PhD, Phone: [phone] us Anitha Charlton MANAGER OF DEVELOPMENT LAB BLOOD ORDERABLES Final Re sult Performing Organization Address City/[facility]/ZIP Co de Phone Number [facility] - * Lipid panel (03/23/2025 11:24 AM CDT) Pathologist [facility] Cholesterol CANCELED mg/dL [facility] - 01 Comment: Please refer to the following specimen for additional lab results. SEE [id number] FOR RESULTS Result canceled by the ancillary. [...] Narrative [facility] - 03/24/2025 3:10 PM CDT [id number]^Cholesterol, Total^L^TNP Please refer to the following specimen for additional lab results. SEE [id number] RESULTS [id number]^Triglycerides^L^TNP Test not performed [id number]^HDL Cholesterol^L^TNP Test not performed 905340^VLDL Cholesterol Joon^L^TNP Unable to calculate result since non-numeric result obtained for component test. Performed at: - [facility] [id number] Speeder Operator: Gaston Dunbar PhD, Phone: [phone] us Anitha Charlton MANAGER OF DEVELOPMENT LAB BLOOD ORDERABLES Final Re sult [facility] - 01 * (ABNORMAL) Comprehensive metabolic panel (03/23/2025 11:24 AM CDT) Glucose 116(H) 70 - 99 mg/dL [facility] [...] - 03/24/2025 8:36 AM CDT Performed at: - [facility] [id number] Speeder Operator: Gaston Dunbar PhD, Phone: [phone] us Anitha Charlton MANAGER OF DEVELOPMENT LAB BLOOD ORDERABLES Final Re sult [facility] - 01 * (ABNORMAL) POCT hemoglobin A1c (03/23/2025 11:06 AM CDT) Hemoglobin A1C, POC 6.7(A) 4.0 - 5.6 % Capillary blood 03/23/2025 1 1:06 AM CDT us Anitha Charlton MANAGER OF DEVELOPMENT POINT OF CARE TEST ORDERABLES Final Result * Albumin Creatinine Ratio, Urine (09/09/2024 8:40 AM MANAGER ASSET MANAGEMENT) Creatinine ur 43.0 Not Estab. mg/dL [facility] - 01 Microalbumin, ur <3.0 Not Estab. ug/mL [facility] - 01 Comment:Verified by repeat analysis Microalbumin/cre at ratio <7 0 - 29 mg/g creat [facility] - 01 Comment: Normal: 0 - 29 Moderately increased: 30 - 300 Severely increased: >300 Urine 09/09/2024 8:40 AM MANAGER ASSET MANAGEMENT 09/09/2024 Narrative [facility] - 09/10/2024 10:09 AM MANAGER ASSET MANAGEMENT Performed at: [address] [place] [id number] Speeder Operator: Gaston Dunbar PhD, Phone: [phone] us Beatriz Link MANAGER OF DEVELOPMENT LAB URINE ORDERABLES Fin al Result [facility] - 01 from Last 3 Months or Most Recently Relevant to Health Maintenance Insurance [address] [place], [place] [address] MEDICARE ADVANTAGE MEDICARE COMMERCIAL GENERIC MEDICARE AETNA SIG [id number] [facility] MEDICARE ADVANTAGE Care Teams Water Use Inspector Relationship Specialty Start Date End Date Jesús Rolle MD PCP - General Endocrinology Diabetes & Metabolism 06/07/21
--- OUTSIDE RECORDS SUMMARY | 2025-04-06 00:24 | XMS_ITS | Clinical Summary ---
Author Organization [facility] Address [address] [place] [address] Care Team Providers Care Drafter Tool Design Name Role Phone Jesse Brunner MD Unavailable [phone] Erik Martinez MD Primary Care Provider [phone] Source Comments [facility],non-owned Affiliates and Associated Physician Practices is amultiple site organization consisting of ambulatory clinics and hospital sitesin [place], [place], [place] and [place]. This disclosure is being madepursuant to the Care Everywhere program and may not contain all information available regarding this patient. Last updated 18.[facility] Allergies No known active allergies Medications * Be aware that medications may not be up to date on this document. Alwaysverify current medications with the patient. atorvastatin (LIPITOR) 10 MG tablet 12/30/2015 Active calcitonin-salmo n (MIACALCIN;FORTI ABI) 200 UNIT/ACT nasal spray 01/24/2016 Active levothyroxine (SYNTHROID) 125 MCG tablet 01/02/2016 Active gabapentin (NEURONTIN) 100 MG capsule 01/23/2016 Active pantoprazole EC (PROTONIX) 40 MG tablet 12/30/2015 Active CARDIZEM LA 240 MG tablet 12/30/2015 Active irbesartan (AVAPRO) 150 MG tablet 12/30/2015 Active ONETOUCH ULTRA TEST STRIPS test strip 12/30/2015 Active HUMALOG vial 02/28/2016 Active levothyroxine (SYNTHROID) 137 MCG tablet Take 1 tablet by mouth once daily 01/21/2017 Active estrogens, conjugated, (PREMARIN) 0.625 MG/GM vaginal cream 0.5 grams per vagina 2-3 times a week at night 1 tube 2 11/13/2018 Active Estradiol (IMVEXXY MAINTENANCE PACK) 10 MCG INST Insert 1 capsule into the vagina Two times a week 8 Each 11 01/29/2019 Active Active Problems Problem Noted Date Diagnosed Date 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 kn ee 03/19/2016 Primary osteoarthritis of right knee 03/19/2016 Social History Tobacco Use Types Packs/Day Years Used Date Smoking Tobacco: Never Smokeless Tobacco: Never Comments Unknown Sex and Gender Information Value Date Recorded Sex Assigned at Not on file Legal Sex Female 6:25 AM EDGE SANDER Gender Identity Not on file Sexual Orientation Not on file Last Filed Vital Signs Vital Sign Reading Time Taken Comments Blood Pressure 142/82 01/29/2019 3:24 PM CDT Pulse - - Temperature - - Respiratory Rate - - Oxygen Saturation - - Inhaled Oxygen Concentration - - Weight 77.1 kg (170 lb) 01/29/2019 3:24 PM CDT Height 165.1 cm (5' 5) 01/29/2019 3:24 PM CDT Body Mass Index 28.29 01/29/2019 3:24 PM CDT Plan of Treatment Health Maintenance Due Date Last Done Comments BONE DENSITY TESTING 1950 COLOGUARD (AGES 45-75) - COL ON CA SCREENING 1950 COLON MONITORING 1952 COLONOSCOPY - COLON CA SCREENING 1952 CT COLONOGRAPHY - COLON CA SCREENING 1950 Colorectal Cancer Screening 1950 FIT - COLON CA SCREENING 1952 FLEX SIG - COLON CA SCREENING 1952 HEPATITIS C SCREENING 11/01/1970 DTAP/TDAP/TD VACCINES (1 - Tdap) 1971 PNEUMOCOCCAL VACCINE 50+ (1 of 1 - PCV) 2002 ZOSTER VACCINE (1 of 2) 2002 SCREENING FOR DIABETES 01/29/2019 MAMMOGRAM 06/10/2021 06/10/2019 COVID-19 VACCINE (2023-2 5 season) 2024 DEPRESSION SCREENING 09/23/2024 INFLUENZA VACCINE (#1) 2025 Respiratory Syncytial Virus (RSV) Vaccine Pt: or over 60 yrs (1 - 1-dose 75+ series) 2027 HEPATITIS B VACCINE Aged Out No longe r eligible based on patient's age to complete this topic HIB VACCINE Aged Out No longer eligi ble based on patient's age to complete this topic HPV VACCINE Aged Out No longer eligi ble based on patient's age to complete this topic MENINGOCOCCAL (Group B) VACC INE SHARED DECISION-MAKING Aged Out No longer eligibl e based on patient's age to complete this topic MENINGOCOCCAL GROUPS A/C/Y/W VACCINE Aged Out No longer eligible b ased on patient's age to complete this topic Procedures Procedure Name Priority Date/Time Associated Diagnosis Comments MAMMOGRAM Routine 06/10/2019 from Last 3 Months or Most Recently Relevant to Health Maintenance Results * MAMMOGRAM (06/10/2019) Anatomical Region Laterality Modality Other us Historical Provider MD SCANNING ONLY Final Res ult from Last 3 Months or Most Recently Relevant to Health Maintenance Insurance MEDICARE AETNA Care Teams Drafter Tool Design Relationship Specialty [place] [address] [place] [id number] PCP - General 01/29/19 [place] [address] [place] [address] Orthopedic Surgery 02/17/16
--- OUTSIDE RECORDS SUMMARY | 2025-04-06 00:24 | XMS_ITS | Encounter Summary ---
Author Organization [facility] Address [address] [place] [address] Care Team Providers Care Boring Mill Operator For Metal Name Role Phone Jesús Rolle MD Primary Care Provider Encounter Details Date Type Department Care Team (Latest Contact Info) Description 03/24/2025 Results Follow-Up [facility] [address] [phone] Anitha Charlton, SETH [address] [address] Comprehensive metabolic panel, Thyroid Function [place], Specimen Status Report, Additional followed-up results: 4 Social History Tobacco Use Types Packs/Day Years Used Date Smoking Tobacco: Never Smokeless Tobacco: Never PHQ-2 Answer Date Recorded PHQ-2 Total Score (If total score is 3 or more points, staff should administer the PHQ-9) 0 03/13/2022 Comments Unknown Sex and Gender Information Value Date Recorded Sex Assigned at Not on file Legal Sex Female 8:36 PM CERTIFIED ORTHOTIC FITTER Gender Identity Female 09/12/2020 9:06 AM CERTIFIED ORTHOTIC FITTER Sexual Orientation Straight 09/12/2020 9: 06 AM CERTIFIED ORTHOTIC FITTER documented as of this encounter Miscellaneous Notes * Telephone Encounter - Khadra Goel - 03/25/2025 11:20 AM CDT Patient notified via [facility] * Telephone Encounter - Khadra Goel - 03/25/2025 11:20 AM CDT ----- Message from Anitha Charlton NP sent at 03/25/2025 7:28 AM CDT ----- Cholesterol levels are in range. Continue current regimen. ----- Message ----- From: [facility] Results In Sent: 03/24/2025 7:37 AM CDT To: Anitha Charlton NP * Telephone Encounter - Khadra Goel - 03/24/2025 4:10 PM CDT Called pt w/ lab results. Sent cortisol to [facility] per pt request. * Telephone Encounter - Khadra Goel - 03/24/2025 4:09 PM CDT ----- Message from Anitha Charlton NP sent at 03/24/2025 3:20 PM CDT ----- Sodium remains low and has been decreasing. Recommend getting a fasting morning cortisol level drawn (before 8 AM) for further evaluation. Thyroid level is in range. Continue current dose of Levothyroxine. ----- Message ----- From: [facility] Lab Results In Sent: 03/24/2025 7:37 AM CDT To: Anitha Charlton NP documented in this encounter Plan of Treatment Not on file documented as of this encounter Procedures Procedure Name Priority Date/Time Associated Diagnosis Comments CORTISOL Routine 04/02/2025 9:32 AM CDT Low sodium levels documented in this encounter Results * Cortisol (04/02/2025 9:32 AM CDT) Cortisol 14.4 6.2 - 19.4 ug/dL [facility] - 01 Comment: Please Note: The reference interval and flagging for this test is for an AM collection. If this is a PM collection please use: Cortisol PM: 2.3-11.9 Blood 04/02/2025 9:32 AM CDT 04/02/2025 Narrative [facility] - 04/03/2025 3:35 AM CDT Performed at: 01 - [facility] [address] [id number] Lining Layer: Gaston Dunbar PhD, Phone: [phone] us Anitha Charlton MARKETING SUPPORT ASSISTANT LAB BLOOD ORDERABLES Final Re sult [facility] - 01 documented in this encounter Visit Diagnoses Diagnosis Low sodium levels- Primary Hyposmolality and/or hyponatremia documented in this encounter Care Teams Boring Mill Operator For Metal Relationship Specialty Start Date End Date Jesús Rolle MD PCP - General Endocrinology Diabetes & Metabolism 06/07/21 documented as of this encounter
[2025-04-06 07:37] VITALS: BP 135/66; PULSE 74; RESP 16; TEMP 36.5; O2SAT 97; BMI 31.9
--- NOTE | 2025-04-06 07:56 | SUR.PREOP ---
Blood Sugar 94 per pt's glucose monitor. Pt did not want to be stuck.
[2025-04-06] MEDS: LACTATED RINGERS 1,000 ML 150 ML IV CONT (08:22)
--- NOTE | 2025-04-06 08:27 | P.PNAN_ITS ---
Anes - Initial Pre Proc Eval Procedure: Operation Date: 04/06/25 09:00 Proposed Procedures p Screening Colonoscopy - Nicholas Evans MD Date/Time: 04/06/25 08:27 Surgeon: Nicholas Evans MD Pre Op Diagnosis: screening neoplasm Patient Data Age: 74 Gender: F Height: 1.57 m Weight: 79.3 kg Last Vital Signs Temp 97.7 F 04/06/25 07:37 Pulse 74 04/06/25 07:37 Resp 16 04/06/25 07:37 BP 135/66 04/06/25 07:37 Pulse Ox 97 04/06/25 07:37 O2 Del Method Room Air 04/06/25 07:37 Allergies Allergy/AdvReac Type Severity Reaction Status Date / Time No Known Allergies Allergy Mild Verified 03/22/25 14:03 Home Medications ?Medication ?Instructions ?Recorded ?Confirmed ?Type insulin lispro 100 unit/mL See Rx Instructions .Route .COMPLEX 09/10/19 04/06/25 History subcutaneous solution (Humalog U-100 Insulin) levothyroxine 137 mcg tablet 137 mcg PO DAILY 09/10/19 04/06/25 History pantoprazole 40 mg tablet,delayed 40 mg PO DAILY 09/10/19 04/06/25 History release irbesartan 300 mg tablet 300 mg PO DAILY 09/05/21 04/06/25 History mupirocin 2 % topical ointment 1 applic topical BID #22 grams 12/02/23 04/06/25 Rx propranolol 60 mg capsule,24 60 mg PO DAILY 12/02/23 04/06/25 History hr,extended release rosuvastatin 40 mg tablet 40 mg PO DAILY 12/02/23 04/06/25 History semaglutide (weight loss) 1 mg/0.5 1 mg subcut WEEKLY 03/22/25 04/06/25 History mL subcutaneous pen injector (Wegovy) Patient hx anesthesia problems: none Family hx anesthesia problems: none Results Review: All pre-operative results and documents have been reviewed as part of the pre- operative evaluation. [facility] Past Medical History Medical History Obesity Depression Anxiety Hypothyroidism Arthritis Gastroesophageal reflux disease HTN (hypertension) Hypercholesterolemia Diabetes Family History Family History Mother Family history of dementia Social History Social History Smoking status: Never smoker Alcohol intake: current Lack of Transportation: No Lack of Food: Never True Current Housing: I Have Housing Concerned About Future Housing: No Difficulty Paying Gas/Electric Bills: No Difficulty Paying for Meds: No Currently Unemployed: No Education: Associate Degree Difficulty w/ Childcare or Family Care: No Anes - Eval Final PreProcedure Day of Procedure 04/06/25 08:27 Patient weight: obese Lungs: normal air movement Airway: Mallampati scale class II Neurological: alert and oriented Last oral intake: >/= 8 hours ASA classification: III Emergent: no Anesthetic plan: proceed Anesthesia type and monitoring: general GIVS and standard monitoring Results Review: All pre-operative results and documents have been reviewed as part of the pre- operative evaluation. HTN, hyperlipidemia, DM 1 on insulin pump w fsbs 98, hypothyroidism. Overall active without cp or sob. Informed Consent: The patient's anesthetic plan and its attendant risks and benefits were discussed with the patient/family/POA. Questions were solicited and answers provided to the satisfaction of the patient/family/POA.
--- NOTE | 2025-04-06 08:52 | PM.IMHP ---
H&P: HPI History of Present Illness Date/Time: 04/06/25 08:52 Chief Complaint: Family history of colorectal cancer Narrative: This patient has family history of colorectal cancer. her daughter has rectal cancer at age 46, and is currently undergoing chemotherapy. Review of Systems Review of Systems: All systems reviewed & are unremarkable except as noted in HPI and below PMFSH Past Medical History Medical History Obesity Depression Anxiety Hypothyroidism Arthritis Gastroesophageal reflux disease HTN (hypertension) Hypercholesterolemia Diabetes Family History Family History Mother Family history of dementia Social History Social History Smoking status: Never smoker Alcohol intake: current Lack of Transportation: No Lack of Food: Never True Current Housing: I Have Housing Concerned About Future Housing: No Difficulty Paying Gas/Electric Bills: No Difficulty Paying for Meds: No Currently Unemployed: No Education: Associate Degree Difficulty w/ Childcare or Family Care: No Meds Home Medications and Allergies Home Medications ?Medication ?Instructions ?Recorded ?Confirmed ?Type insulin lispro 100 unit/mL See Rx Instructions .Route .COMPLEX 09/10/19 04/06/25 History subcutaneous solution (Humalog U-100 Insulin) levothyroxine 137 mcg tablet 137 mcg PO DAILY 09/10/19 04/06/25 History pantoprazole 40 mg tablet,delayed 40 mg PO DAILY 09/10/19 04/06/25 History release irbesartan 300 mg tablet 300 mg PO DAILY 09/05/21 04/06/25 History mupirocin 2 % topical ointment 1 applic topical BID #22 grams 12/02/23 04/06/25 Rx propranolol 60 mg capsule,24 60 mg PO DAILY 12/02/23 04/06/25 History hr,extended release rosuvastatin 40 mg tablet 40 mg PO DAILY 12/02/23 04/06/25 History semaglutide (weight loss) 1 mg/0.5 1 mg subcut WEEKLY 03/22/25 04/06/25 History mL subcutaneous pen injector (Wegovy) Allergies Allergy/AdvReac Type Severity Reaction Status Date / Time No Known Allergies Allergy Mild Verified 03/22/25 14:03 Vital Signs Vital Signs - 24 hr 04/06/25 07:37 Temperature 97.7 F Pulse Rate 74 Respiratory Rate 16 Blood Pressure 135/66 Pulse Oximetry 97 Oxygen Delivery Room Air Exam Const: General: cooperative and healthy appearing Resp: Effort & Inspection: normal respiratory effort and able to speak in complete sentences Auscultation: clear to auscultation bilaterally Cardio: Rate: regular rate Rhythm: regular rhythm GI: Inspection: normal to inspection GI Palp: No No hepatosplenomegaly present Auscultation: normal bowel sounds Rectal Exam: deferred Skin: General skin exam: normal color Psych: Appearance: grossly normal Mental Status: mental status grossly normal Assessment and Plan Assessment and plan (1) Family history of colorectal cancer: Code(s): Z80.0 - Family history of malignant neoplasm of digestive organs Status: Acute Assessment and Plan: The patient is deemed a good candidate for the procedure. Consent signed. Will proceed.
--- NOTE | 2025-04-06 09:30 | S_PTH ---
PATIENT: Vandana Dickey LOC: [facility] U#:[id number] AGE/SX: 74/F ROOM: RE04/06/[address]: Nicholas Evans MD : 1950 BED: DIS: 04/06/2025 SPEC #: [id number] RECD: 04/06/25 10:23 STATUS: VERONIKA RETeresa #: [id number] KEVIN: 04/06/25 09:[address]: Nicholas Evans DEPT: [facility] Surgical RECD BY: Razia Packer Tissues: A - Colon Polypectomy Procedures: Hematoxylin and Eosin Stain Gross and Microscopic Level 4
[2025-04-06 09:34] VITALS: BP 113/49; PULSE 67; RESP 17; O2SAT 96
[2025-04-06 09:44] VITALS: BP 118/56; PULSE 72; RESP 20; O2SAT 100
--- NOTE | 2025-04-06 09:48 | SUR.PHASEII ---
Patient checked blood sugar by her continuous monitor. Blood sugar was 85.
[2025-04-06 09:54] VITALS: BP 123/62; PULSE 68; RESP 20; O2SAT 100
== END 2025-04-06 10:09 | disposition home or self-care (01) ==
PROVIDERS: Referring Provider Internal Medicine Gastroenterology; Visit Provider Internal Medicine Gastroenterology
PROC: 0DJD8ZZ Inspection of Lower Intestinal Tract, Via Natural or Artificial Opening Endoscopic (ICD-10-PCS; CPT 45378; principal; 2025-04-06 09:00)
DX: Z12.11 Encounter for screening for malignant neoplasm of colon (principal); D12.3 Benign neoplasm of transverse colon; K64.8 Other hemorrhoids; K57.30 Diverticulosis of large intestine without perforation or abscess without bleeding; E03.9 Hypothyroidism, unspecified; I10 Essential (primary) hypertension; E11.9 Type 2 diabetes mellitus without complications; E78.00 Pure hypercholesterolemia, unspecified; K21.9 Gastro-esophageal reflux disease without esophagitis; F41.9 Anxiety disorder, unspecified; F32.A Depression, unspecified; M19.90 Unspecified osteoarthritis, unspecified site; E66.9 Obesity, unspecified; Z68.32 Body mass index [BMI] 32.0-32.9, adult; Z79.4 Long term (current) use of insulin; Z79.85 Long-term (current) use of injectable non-insulin antidiabetic drugs; Z96.41 Presence of insulin pump (external) (internal); Z80.0 Family history of malignant neoplasm of digestive organs
CPT/HCPCS: 45385; 88305; J2003; J2704; J7120